=== PATIENT | female | born 1960 | race Caucasian/White ===

== ENCOUNTER → 2016-09-05 10:58 | Outpatient (CLI) | payer MEDICAID ==
[2016-06-13 15:29] VITALS: BMI 19.5
[~2016-09-05 10:58] MED LIST: ATIVAN0.5 MG PO; ELIQUIS2.5 MG PO; HYDROCODONE-APA1 TAB PO; OXYCODONE HCL E20 MG PO
== END | disposition home or self-care (01) ==
LOC: D.NM 08-16 10:15
DX: G90.521 Complex regional pain syndrome I of right lower limb (principal); Z96.651 Presence of right artificial knee joint

== ENCOUNTER 2016-10-11 11:20 | Day surgery (SDC) | payer MEDICAID ==
[~2016-10-11] VITALS: Ht 152.4 cm; Wt 45.5 kg
[~2016-10-11 11:20] MED LIST changes: -OXYCODONE HCL E20 MG PO
[2016-10-11] MEDS ORDERED: OXYCODONE HCL E20 MG PO (12:12)
[2016-10-11 12:27] VITALS: BP 131/84; Ht 152.4 cm; Wt 45.5 kg
--- NOTE | 2016-10-11 13:26 | NUR ---
1305 PROC COMPLETED WITHOUT PROBLEMS, WATER AND JUICE SERVED.
--- NOTE | 2016-10-11 13:31 | NUR ---
1308 BP 118/64 103 20 99% SAT 1315 105/64 97 20 99% SAT RETAINS LIQUIDS, VOIDS, STATES KNEES STILL HURTS BUT MUCH LESS RATES PAIN 4, GETTING DRESSED 1330 DC INSTS GIVEN, RELEASED IN WC .
--- NOTE | 2016-10-12 11:01 | PRO ---
PATIENT:ELEN HASKINS MEDICAL RECORD: [id number] : 60 LOCATION:PATRICIO ADMISSION DATE: 10/11/16 PROCEDURE PERFORMED BY: GLORIA BAEZ MD DATE OF PROCEDURE: 10/11/2016 Ms. Haskins is a 55-year-old patient, white female, who is referred by Dr. Josh Lazcano for the potential diagnosis of RSD or reflex sympathetic dystrophy. Ms. Haskins presented for evaluation and possible injection today for her bilateral lower extremity RSD. The patient has a complicated history and a complicated course. Apparently, the patient had [address] of her lower back in 2012, which did demonstrate some pathology at L4-L5 and L5-S1. The patient also related that she had a history of L4-L5 lumbar burgos by Dr. Webb in 1999. The patient was seen recently by Dr. Josh Lazcano for a right total knee. The patient relates that after her knee replacement that she has had significant pain of her lower extremities, right and left. The patient also has swelling of her feet bilaterally, which resolves within 1-2 weeks. The patient relates though that she has significant pain with that swelling and it come and go anytime. Does not seem to have any triggers such as trauma or any external issues that would cause the swelling. The patient has had a total body bone scan, which revealed some issues in her great toes bilaterally, but nothing else of significance. That was in 2012. She recently had a nuclear medicine bone scan of her knee, which demonstrated no scintigraphic evidence of infection or loosening of the right knee arthroplasty with the patient's complaint of the right knee pain. Dr. Lazcano has a presumptive diagnosis of RSD and has sent the patient to our service for evaluation and possible injections. After discussing with the patient extensively about her recent problems, which she relates that she acknowledges to have pain and swelling of her lower extremities, but can also have pain of her upper extremities, especially in her upper extremity joints. The patient relates that she does have a history of being diagnosed with rheumatoid arthritis and the patient has been trialed on multiple medications unsuccessfully, are causing side effects which include gabapentin, meloxicam, and Lyrica. The patient relates that those either to do not work or can cause swelling or issues in the past. Discussed with the patient if she had ever been diagnosed with fibromyalgia and she said no, may want to consider that diagnosis in the future. Physical examination did reveal a small statured woman with some slight swelling of her extremities especially her feet bilaterally. The patient does relate that they are tender to touch and that they seemed somewhat erythematous. The patient relates that she has had significant pain over her right knee. Upon examination in touching over the skin of her right knee, the patient related that it was severely tender to touch. On evaluation of her upper extremities versus lower extremities, hand's temperature was about 33-35 degrees centigrade, feet were approximately 1-2 degrees higher than that. The patient does relate that her feet become warm along with her tenderness and swelling. I feel that the patient might perhaps have some component of RSD or causalgia. I did not feel it was a classic presentation patient has no history of trauma other than the knee replacement and that she was having these issues prior to that knee replacement. The knee replacement had just seemed to exacerbate the issue. I felt that the patient may have as described earlier component of RSD, discussed lumbar epidural steroid injection with local anesthetic to see if we could start to alleviate patient's discomfort in her lower extremities. Risks and benefits were explained to the patient including risk of bleeding, infection and damage to underlying structures. It should be noted that the patient was on Eliquis, PROCEDURE NOTE [id number] ELEN HASKINS but has been off for significant period of time. The patient was on Eliquis following her knee surgery for DVT prophylaxis. Again, the patient is currently on no anticoagulation therapy at this time. After risks and benefits were explained, the patient consents. All questions were asked. was present. The patient was placed in sitting position, Betadine prep and drape. Under sterile conditions, local skin wheal was raised at L4-5 and a 17-gauge Tuohy needle was introduced in the epidural space via loss of resistance technique between L4-5. After loss of resistance technique, approximately 8 mL of solution, which was 160 mg of Depo-Medrol with 0.125% bupivacaine, was instilled into the epidural space. I did not notice any significant change in the patient's temperature between arms and legs after injection. The patient still relates that she has some discomfort in her lower extremities, but maybe there might be some improvement. I related to the patient that she would need at least a series of 3 injections to see if we could have some improvement on her lower extremity discomfort. TRANSINT:[id number] Voice Confirmation ID: [id number] DOCUMENT ID: [id number] CC: Neeta Flynn APRN, [facility] GLORIA BAEZ MD at 1101 CC: QUOC LAZCANO MD [id number] DICTATION DATE: 10/11/16 1316 BUSINESS STRATEGIST: 10/12/16 0709 [facility] [place] 10/11/16 [id number] [place] [address]
== END 2016-10-11 13:35 | disposition home or self-care (01) ==
LOC: D.OPS 11:20
DX: M79.662 Pain in left lower leg (principal); M79.661 Pain in right lower leg; M79.89 Other specified soft tissue disorders; M06.9 Rheumatoid arthritis, unspecified; Z96.651 Presence of right artificial knee joint

== ENCOUNTER 2016-10-18 11:57 | Day surgery (SDC) | payer MEDICAID ==
[~2016-10-18 11:57] MED LIST changes: +OXYCODONE HCL E20 MG PO
[2016-10-18 16:45] VITALS: Ht 152.4 cm
== END 2016-10-18 13:47 | disposition home or self-care (01) ==
LOC: D.OPS 11:57
DX: M53.3 Sacrococcygeal disorders, not elsewhere classified (principal); M06.9 Rheumatoid arthritis, unspecified; F17.200 Nicotine dependence, unspecified, uncomplicated; Z79.891 Long term (current) use of opiate analgesic; Z79.899 Other long term (current) drug therapy

== ENCOUNTER → 2017-02-10 12:44 | Outpatient (CLI) | payer SELFPAY | END | disposition home or self-care (01) | LOC: D.MRI 02-03 15:00 | DX: M79.671 Pain in right foot (principal); M79.672 Pain in left foot; M25.571 Pain in right ankle and joints of right foot; M25.572 Pain in left ankle and joints of left foot ==

== ENCOUNTER 2017-02-15 12:16 | Inpatient (IN) | payer SELFPAY ==
[~2017-02-15] VITALS: Ht 152.4 cm; Wt 45.5 kg
[2017-02-15 11:00] VITALS: BP 98/62
[~2017-02-15 12:16] MED LIST changes: +OXY IR30 MG PO; -OXYCODONE HCL E20 MG PO
[2017-02-15 12:41] VITALS: BP 116/65
--- NOTE | 2017-02-15 13:00 | NUR ---
ADMIT ASSESSMENT PER FLOW SHEET.ORIENTATION TO ROOM.CALL LIGHT IN REACH.FALL PREVENTION INITIATED
[2017-02-15 13:14] VITALS: BP 116/65; Ht 152.4 cm; Wt 45.5 kg
[2017-02-15 13:14] LABS: BASOPHILS 0.1 % (0-2); EOSINOPHILS 0.9 % (0-7); HEMATOCRIT 31.4 % (36.0-48.0); HEMOGLOBIN 10.3 g/dL (12-16); IMMATURE GRANULOCYTES 0.2 % (0-5); LYMPHOCYTES 23.1 % (15-50); MCH 27.7 pg (26.0-34.0); MCHC 32.8 g/dL (31.0-37.0); MCV 84.4 fL (80.0-100.0); MEAN PLATELET VOLUME 8.4 fL (7.4-10.4); MONOCYTES 5.6 % (2-11); NEUTROPHILS 70.1 % (40-80); RBC 3.72 10x6/uL (4.00-5.40); RDW 16.1 % (11.5-14.5); WBC 10.5 10x3/uL (4.8-10.8)
[2017-02-15 13:16] LABS: PLATELET COUNT 422 10x3/uL (130-400)
[2017-02-15 14:27] LABS: C-REACTIVE PROTEIN 12.1 mg/dL (0.0-0.9); CALC OSMOLALITY 267 mosm/kg (275-300); CALCIUM 8.6 mg/dL (8.5-10.1); CARBON DIOXIDE 27.2 mmol/L (21.0-32.0); CHLORIDE - SERUM 99 mmol/L (98-107); CREATININE - SERUM 0.5 mg/dL (0.6-1.3); GLUCOSE 94 mg/dL (74-106); POTASSIUM - SERUM 4.1 mmol/L (3.5-5.1); SODIUM 135 mmol/L (136-145); UREA NITROGEN 6 mg/dL (7-18); URIC ACID 2.2 mg/dL (2.6-7.2); eGFR NON AFRICAN AMERICAN > 90 mL/min (90-120)
--- NOTE | 2017-02-15 14:30 | NUR ---
IV SITED TO RIGHT HAND USING ASEPTIC TECH X2 STICKS,22G.MEDS ORDERED FOR PILO
[2017-02-15 14:34] LABS: ERYTHROCYTE SEDIMENTATION RATE 105 mm/hr (0-30)
--- NOTE | 2017-02-15 17:43 | NUR ---
PT WISHES TO GO OUTSIDE AND SMOKE AFTER BEING INSTRUCTED SHE IS ON BED REST.SHE ALSO HAS BEEN INFORMED NICOTINE PATCH WILL NOT BE PLACED ON HER WHEN SHE RETURNS.SHE WILL HAVE TO WAIT A FEW HOURS.SHE IS ALSO INFORMED HAS WILL RETURN SOON TO PLACE EPIDURAL FOR PAIN AND SHE NEEDS TO BE IN ROOM.CONSENT NOT SIGNED AT PRESENT.
[2017-02-15 18:03] LABS: APTT 31.6 SECONDS (22.8-39.4); INR 1.11 (0.85-1.17); PROTIME 14.2 SECONDS (11.6-15.0)
--- NOTE | 2017-02-15 18:05 | NUR ---
PT LEFT UNIT MBULATORY AFTER BEING ADVISED IF SHE WOULD WAIT SOMEONE WOULD HELP HER WITH WHEELCHAIR.SHE DECLINES AND WALKS OFF.
--- NOTE | 2017-02-15 18:57 | NUR ---
PT BACK ON UNIT AFTER GOING OUTSIDE.CONSENTS SIGNED AND THEN MEDS GIVEN ORDERED.
[2017-02-15 20:00] VITALS: BP 100/64
[2017-02-15 23:00] VITALS: BP 98/62
[2017-02-16 04:39] VITALS: BP 95/54
[2017-02-16 06:54] LABS: BASOPHILS 0.1 % (0-2); EOSINOPHILS 1.6 % (0-7); HEMOGLOBIN 9.2 g/dL (12-16); IMMATURE GRANULOCYTES 0.5 % (0-5); LYMPHOCYTES 23.3 % (15-50); MCH 27.7 pg (26.0-34.0); MCHC 32.9 g/dL (31.0-37.0); MCV 84.3 fL (80.0-100.0); MEAN PLATELET VOLUME 8.4 fL (7.4-10.4); MONOCYTES 7.6 % (2-11); NEUTROPHILS 66.9 % (40-80); PLATELET COUNT 455 10x3/uL (130-400); RBC 3.32 10x6/uL (4.00-5.40); RDW 16.3 % (11.5-14.5); WBC 10.2 10x3/uL (4.8-10.8)
[2017-02-16 07:15] LABS: CALC OSMOLALITY 274 mosm/kg (275-300); CALCIUM 8.3 mg/dL (8.5-10.1); CARBON DIOXIDE 25.6 mmol/L (21.0-32.0); CHLORIDE - SERUM 104 mmol/L (98-107); CREATININE - SERUM 0.5 mg/dL (0.6-1.3); GLUCOSE 118 mg/dL (74-106); POTASSIUM - SERUM 3.8 mmol/L (3.5-5.1); SODIUM 138 mmol/L (136-145); UREA NITROGEN 6 mg/dL (7-18); eGFR NON AFRICAN AMERICAN > 90 mL/min (90-120)
--- NOTE | 2017-02-16 07:40 | NUR ---
PT AOX4 RESP EVEN AND NONLABORED PT DENIES NEEDS AT THIS TIME IV TO RIGHT HAND PATENT AND INTACT SRX2 BED AT LOWEST SETTING CALL LIGHT WITHIN REACH WILL CONTINUE TO MONITR
[2017-02-16 10:19] LABS: ANA REFLEX - DIRECT Negative (Negative)
--- NOTE | 2017-02-16 10:23 | NUR ---
CM CALLED ADMISSIONS TO COME AND SPEAK TO PATIENT ABOUT MEDICAID. HI IN ADMISSIONS STATED PATIENT HAD MEDICAID IN SEPTEMBER AND THEY WOULD BE UP TO SPEAK WITH PATIENT THIS MORNING.
[2017-02-16 16:35] LABS: ALBUMIN 1.9 g/dL (3.4-5.0); ALKALINE PHOSPHATASE 124 U/L (46-116); ALT (SGPT) 14 U/L (10-68); BILIRUBIN - TOTAL 0.22 mg/dL (0.2-1.3); CALC OSMOLALITY 272 mosm/kg (275-300); CALCIUM 8.4 mg/dL (8.5-10.1); CARBON DIOXIDE 23.8 mmol/L (21.0-32.0); CHLORIDE - SERUM 104 mmol/L (98-107); CREATININE - SERUM 0.5 mg/dL (0.6-1.3); GLUCOSE 101 mg/dL (74-106); POTASSIUM - SERUM 4.1 mmol/L (3.5-5.1); PROTEIN - SERUM 6.6 g/dL (6.4-8.2); SODIUM 138 mmol/L (136-145); UREA NITROGEN 5 mg/dL (7-18); eGFR NON AFRICAN AMERICAN > 90 mL/min (90-120)
[2017-02-16 20:00] VITALS: BP 189/52
[2017-02-17] VITALS: BP 96/61
--- NOTE | 2017-02-17 02:37 | NUR ---
PT WAS ASSESSED AT THE BEGINNING OF THE SHIFT. SHE IS ALERT AND ORIENTED, ABLE TO VERBALIZE NEEDS. SHE STARTED OUT WANTING TO GO OUT SIDE WALKING, BUT WE REQUESTED THAT SHE ONLY GO IN A WHEELCHAIR DUE TO THE RECENT EPIDURAL, SWELLING IN HER FEET AND DRUGS SHE HAS TAKEN. SHE AGREED TO THIS. THE IV SITE TO HER RIGHT HAND IS GOOD WITH NO PROBLEMS. IT WAS DISCONNECTED WHILE SHE WAS GONE AWAY FROM THE NURSES STATION. WHEN SHE RETURNED SHE TOOK A SHOWER AND WASHED OFF HER NICOTINE PATCH. AT MIDNIGHT SHE TOOK ANOTHER TRIP OUTSIDE AND THEN WHEN SHE RETURNED SHE GOT HER PAIN MEDS AND WAS SETTLED FOR THE NIGHT BUT DID NOT GET ANOTHER NICOTINE PATCH. SHE WAS TOLD IT WOULD BE GIVEN TO HER IN THE AM AT 0900. SHE IS GOING TO THE BATHROOM AD BRIDGET AND HAS NOT REPOSRTED ANY PROBLEMS OF THIS TIME. THE BED IS LOW, RAILS UP X'S 2 WITH THE CALL LIGHT AT HAND. ALL MEDS HAVE BEEN TAKEN.
[2017-02-17 04:00] VITALS: BP 84/49
[2017-02-17 05:46] LABS: BASOPHILS 0.1 % (0-2); EOSINOPHILS 0 % (0-7); HEMATOCRIT 30.3 % (36.0-48.0); HEMOGLOBIN 9.7 g/dL (12-16); IMMATURE GRANULOCYTES 0.1 % (0-5); LYMPHOCYTES 17.9 % (15-50); MCH 27.2 pg (26.0-34.0); MCV 84.9 fL (80.0-100.0); MEAN PLATELET VOLUME 9.1 fL (7.4-10.4); MONOCYTES 1.6 % (2-11); NEUTROPHILS 80.3 % (40-80); PLATELET COUNT 503 10x3/uL (130-400); RBC 3.57 10x6/uL (4.00-5.40); RDW 15.9 % (11.5-14.5); WBC 8.2 10x3/uL (4.8-10.8)
[2017-02-17 05:59] LABS: ALKALINE PHOSPHATASE 137 U/L (46-116); ALT (SGPT) 15 U/L (10-68); CALCIUM 8.7 mg/dL (8.5-10.1); CARBON DIOXIDE 25.6 mmol/L (21.0-32.0); CHLORIDE - SERUM 106 mmol/L (98-107); CREATININE - SERUM 0.6 mg/dL (0.6-1.3); PROTEIN - SERUM 6.6 g/dL (6.4-8.2); SODIUM 141 mmol/L (136-145); eGFR NON AFRICAN AMERICAN > 90 mL/min (90-120)
[2017-02-17 06:01] LABS: CALC OSMOLALITY 283 mosm/kg (275-300); GLUCOSE 168 mg/dL (74-106); POTASSIUM - SERUM 4.9 mmol/L (3.5-5.1); UREA NITROGEN 9 mg/dL (7-18)
--- NOTE | 2017-02-17 07:30 | NUR ---
PATIENT RECEIVED IN RIGHT LATERAL POSITION RESTING QUIETLY. RESPIRATIONS EVEN AND UNLABORED. SIDE RAILS UP X2. BED IN LOW POSITION. CALL LIGHT IN REACH. IV TO RIGHT HAND SALINE SACHA PER PATIENT REQUEST.
--- NOTE | 2017-02-17 08:30 | NUR ---
ALERT IN BED WATCHING TV. NO SIGNS OF DISTRESS NOTED. WANTS TO GO HOME. SCHEDULED MEDICATION ADMINISTERED WELL PRN OXYCODONE. DENIES NEEDS. SIDE RAILS UP X2. BED IN LOW POSITION. CALL LIGHT IN REACH.
[2017-02-17 08:56] VITALS: BP 98/64
--- NOTE | 2017-02-17 09:01 | NUR ---
Patient Name: ELEN MEEHAN Admission Status: Urgent Accout number: [id number] Admission Date: 02-15-2017 : 1960 Admission Diagnosis: Attending: LIGIA Current LOS: 2 Anticipated DC Date: 02-20-2017 Planned Disposition: Home Primary Insurance: UNINSURED DISCOUNT PLAN Discharge Planning Comments: CM MET WITH PATIENT REGARDING D/C NEEDS AND PLANS. PATIENT STATED SHE LIVES WITH HER ROOMMATE (SADE GUTIERREZ) AND HE WILL DRIVE HER HOME AT DISCHARGE. PATIENT STATED SHE HAS 1 STEP TO ENTER HOME AND NO STAIRS INSIDE. PATIENT IS INDEPENDENT WITH HER CARE AND HAS A WALKER AND SHOWER CHAIR AT HOME. PATIENTS PCP IS DR. ORDAZ ([facility]) AND USES [facility] ON [address]. PATIENT DOES NOT WANT HOME HEALTH AT DISCHARGE. PATIENT STATED SHE HAS MEDICAID THAT SHE HAS HER LETTER PENDING IN HER [facility] NOTIFIED BUSINESS OFFICE. CM WILL CONTINUE TO FOLLOW PATIENT WITH D/C NEEDS AND PLANS. PCP DR. ORLIN [facility] [address] [phone] SADE GUTIERREZ (ROOMMATE) [phone] Superintendent Meter Tests: Lauren Flynn Is the patient Alert and Oriented? Yes 0 * How many steps to enter\exit or inside your home? 1 0 * PCP DR. ORDAZ ([facility]) 0 * Pharmacy [facility] [address] 0 * Preadmission Environment Home with Family 0 * ADLs Independent 0 * Equipment Shower Chair Walker 0 * List name and contact numbers for known caregivers / representatives who currently or will assist patient after discharge: SADE GUTIERREZ - [phone] * Community resources currently utilized None 0 * Additional services required to return to the preadmission environment? Yes 0 * Can the patient safely return to the preadmission environment? Yes 0 * Has this patient been hospitalized within the prior 30 days at any hospital? No 0 Grand Total: 0
--- NOTE | 2017-02-17 10:00 | NUR ---
SITTING UP ON SIDE OF BED ALERT. NO SIGNS OF DISTRESS NOTED. REFUSES SCDS. BED IN LOW POSITION. CALL LIGHT IN REACH.
[2017-02-17 12:36] VITALS: BP 95/60
--- NOTE | 2017-02-17 13:17 | NUR ---
PATIENT UP AMBULATING IN HALLWAY WITHOUT ASSIST. NO SIGNS OF DISTRESS NOTED. WILL CONTINUE TO MONITOR.
[2017-02-17] MEDS ORDERED: INDOCIN25 MG PO (13:35)
[2017-02-17] MEDS ORDERED: PREDNISONE5 MG PO (13:39)
--- NOTE | 2017-02-17 14:26 | NUR ---
CM REASSESSMENT NOTE: PATIENT IS DISCHARGING HOME WITH NO NEEDS. PATIENT DENIED HOME HEALTH. SADE GUTIERREZ IS DRIVING PATIENT HOME.
--- NOTE | 2017-02-17 14:30 | NUR ---
ALERT IN BED. OXY IR ADMINISTERED PER PRN ORDER. IV TO RIGHT WRIST D/C WITH CATH TIP INTACT. SITE COVERED WITH GAUZE AND BANDAID. ANTICIPATING D/C HOME. CALL LIGHT IN REACH.
--- NOTE | 2017-02-17 15:56 | NUR ---
D/C TEACHING PROVIDED. DENIES QUESTIONS
--- NOTE | 2017-02-17 16:10 | NUR ---
PATIENT AMBULATED OFF UNIT WITHOUT ASSIST WITH BELONGINGS. REFUSES WHEELCHAIR AND ASSIST
== END 2017-02-17 16:14 | disposition home or self-care (01) | DRG 74 ==
LOC: D.MS 12:16 → D.SDCHOLD 12:16 → D.MS 12:19
PROVIDERS: Anesthesiology; Family Medicine; ADMIT Orthopaedic Surgery
DX: G90.50 Complex regional pain syndrome I, unspecified (principal); F17.203 Nicotine dependence unspecified, with withdrawal; J45.909 Unspecified asthma, uncomplicated; F41.9 Anxiety disorder, unspecified; M19.90 Unspecified osteoarthritis, unspecified site; F41.0 Panic disorder [episodic paroxysmal anxiety]

== ENCOUNTER 2018-01-19 13:51 | Inpatient (IN) | payer MEDICAID ==
[~2018-01-19] VITALS: Ht 152.4 cm; Wt 4.5 kg
[~2018-01-19 13:51] MED LIST changes: +INDOCIN25 MG PO; +PREDNISONE5 MG PO
[2018-01-20 13:15] VITALS: BP 107/56
[2018-01-20 13:26] VITALS: BP 107/56
[2018-01-20 13:46] VITALS: Ht 152.4 cm; Wt 4.5 kg
[2018-01-20 14:45] LABS: BASOPHILS 0.2 % (0-2); EOSINOPHILS 2.1 % (0-7); HEMATOCRIT 29.2 % (36.0-48.0); HEMOGLOBIN 9.4 g/dL (12-16); IMMATURE GRANULOCYTES 0.3 % (0-5); LYMPHOCYTES 24.2 % (15-50); MCH 24.7 pg (26.0-34.0); MCHC 32.2 g/dL (31.0-37.0); MCV 76.6 fL (80.0-100.0); MEAN PLATELET VOLUME 8.2 fL (7.4-10.4); MONOCYTES 5.5 % (2-11); NEUTROPHILS 67.7 % (40-80); PLATELET COUNT 366 10x3/uL (130-400); RBC 3.81 10x6/uL (4.00-5.40); RDW 17.5 % (11.5-14.5); WBC 12.1 10x3/uL (4.8-10.8)
[2018-01-20 15:13] LABS: ALBUMIN 2.2 g/dL (3.4-5.0); ALKALINE PHOSPHATASE 106 U/L (46-116); ALT (SGPT) 12 U/L (10-68); BILIRUBIN - DIRECT 0.07 mg/dL (0.00-0.30); BILIRUBIN - TOTAL 0.17 mg/dL (0.2-1.3); C-REACTIVE PROTEIN 13.2 mg/dL (0.0-0.9); CALC OSMOLALITY 271 mosm/kg (275-300); CALCIUM 8.5 mg/dL (8.5-10.1); CARBON DIOXIDE 29.7 mmol/L (21.0-32.0); CHLORIDE - SERUM 101 mmol/L (98-107); CREATININE - SERUM 0.5 mg/dL (0.6-1.3); GLUCOSE 137 mg/dL (74-106); POTASSIUM - SERUM 3.4 mmol/L (3.5-5.1); PRO BNP 89 pg/mL (0-125); PROTEIN - SERUM 7.3 g/dL (6.4-8.2); SODIUM 136 mmol/L (136-145); UREA NITROGEN 7 mg/dL (7-18); eGFR NON AFRICAN AMERICAN > 90 mL/min (90-120)
[2018-01-20 15:57] LABS: ERYTHROCYTE SEDIMENTATION RATE 93 mm/hr (0-30)
[2018-01-20 16:17] VITALS: BP 90/55
[2018-01-20 22:20] LABS: APPEARANCE CLEAR (CLEAR); COLOR DK YELLOW (YELLOW)
[2018-01-20 22:21] LABS: BILIRUBIN NEGATIVE (NEGATIVE); GLUCOSE NEGATIVE (NEGATIVE); KETONE NEGATIVE (NEGATIVE); NITRITE NEGATIVE (NEGATIVE); PROTEIN NEGATIVE (NEGATIVE); UROBILINOGEN NORMAL (NORMAL)
[2018-01-20 23:04] VITALS: BP 105/58
[2018-01-21 04:33] VITALS: BP 91/44
[2018-01-21 06:22] LABS: BASOPHILS 0.3 % (0-2); EOSINOPHILS 2.7 % (0-7); HEMATOCRIT 27.5 % (36.0-48.0); HEMOGLOBIN 8.7 g/dL (12-16); IMMATURE GRANULOCYTES 0.5 % (0-5); LYMPHOCYTES 22.7 % (15-50); MCHC 31.6 g/dL (31.0-37.0); MEAN PLATELET VOLUME 8.6 fL (7.4-10.4); MONOCYTES 6.5 % (2-11); NEUTROPHILS 67.3 % (40-80); PLATELET COUNT 377 10x3/uL (130-400); RBC 3.62 10x6/uL (4.00-5.40); RDW 17.5 % (11.5-14.5); WBC 10.7 10x3/uL (4.8-10.8)
[2018-01-21 06:36] LABS: CALC OSMOLALITY 267 mosm/kg (275-300); CALCIUM 8.1 mg/dL (8.5-10.1); CARBON DIOXIDE 26.6 mmol/L (21.0-32.0); CHLORIDE - SERUM 102 mmol/L (98-107); CREATININE - SERUM 0.4 mg/dL (0.6-1.3); GLUCOSE 111 mg/dL (74-106); POTASSIUM - SERUM 3.7 mmol/L (3.5-5.1); SODIUM 135 mmol/L (136-145); eGFR NON AFRICAN AMERICAN > 90 mL/min (90-120)
[2018-01-21 06:39] LABS: UREA NITROGEN 5 mg/dL (7-18)
[2018-01-21 08:42] VITALS: BP 94/45
[2018-01-21 12:45] VITALS: BP 106/49
[2018-01-21 16:35] VITALS: BP 97/58
[2018-01-21 17:47] LABS: % SATURATION 5 % (15-55); IRON 10 ug/dl (35-150); TOTAL IRON BIND CAPACITY 187 ug/dl (260-445); UNSAT IRON BIND CAPACITY 177 ug/dl (150-375)
[2018-01-21 18:01] LABS: URIC ACID 2.8 mg/dL (2.6-7.2)
[2018-01-21 20:00] VITALS: BP 135/77
[2018-01-22 04:00] VITALS: BP 110/53
[2018-01-22 07:30] LABS: BASOPHILS 0.1 % (0-2); EOSINOPHILS 0.8 % (0-7); HEMATOCRIT 26.5 % (36.0-48.0); HEMOGLOBIN 8.4 g/dL (12-16); IMMATURE GRANULOCYTES 0.4 % (0-5); MCH 24.1 pg (26.0-34.0); MCHC 31.7 g/dL (31.0-37.0); MCV 76.1 fL (80.0-100.0); MEAN PLATELET VOLUME 8.2 fL (7.4-10.4); MONOCYTES 7.9 % (2-11); NEUTROPHILS 60.8 % (40-80); PLATELET COUNT 355 10x3/uL (130-400); RBC 3.48 10x6/uL (4.00-5.40); RDW 17.7 % (11.5-14.5); WBC 9.7 10x3/uL (4.8-10.8)
[2018-01-22 07:42] LABS: CALC OSMOLALITY 276 mosm/kg (275-300); CALCIUM 8.5 mg/dL (8.5-10.1); CARBON DIOXIDE 25.4 mmol/L (21.0-32.0); CHLORIDE - SERUM 106 mmol/L (98-107); CREATININE - SERUM 0.5 mg/dL (0.6-1.3); GLUCOSE 117 mg/dL (74-106); POTASSIUM - SERUM 3.8 mmol/L (3.5-5.1); SODIUM 139 mmol/L (136-145); UREA NITROGEN 6 mg/dL (7-18); eGFR NON AFRICAN AMERICAN > 90 mL/min (90-120)
[2018-01-22 08:00] VITALS: BP 94/58
[2018-01-22 17:05] VITALS: BP 115/58
[2018-01-22 18:49] LABS: ERYTHROCYTE SEDIMENTATION RATE 105 mm/hr (0-30)
[2018-01-22 20:48] LABS: % SATURATION 7 % (15-55); IRON 14 ug/dl (35-150); TOTAL IRON BIND CAPACITY 183 ug/dl (260-445); UNSAT IRON BIND CAPACITY 169 ug/dl (150-375)
[2018-01-22 22:58] VITALS: BP 109/66
[2018-01-23 05:13] LABS: BASOPHILS 0.1 % (0-2); EOSINOPHILS 0.7 % (0-7); HEMATOCRIT 29.1 % (36.0-48.0); HEMOGLOBIN 9.2 g/dL (12-16); IMMATURE GRANULOCYTES 0.4 % (0-5); MCH 24.5 pg (26.0-34.0); MCHC 31.6 g/dL (31.0-37.0); MCV 77.6 fL (80.0-100.0); MEAN PLATELET VOLUME 8.6 fL (7.4-10.4); MONOCYTES 6.6 % (2-11); NEUTROPHILS 60.2 % (40-80); RBC 3.75 10x6/uL (4.00-5.40)
[2018-01-23 05:19] LABS: PLATELET COUNT 463 10x3/uL (130-400); WBC 13.5 10x3/uL (4.8-10.8)
[2018-01-23 05:35] LABS: CALC OSMOLALITY 281 mosm/kg (275-300); CALCIUM 9.1 mg/dL (8.5-10.1); CARBON DIOXIDE 26.8 mmol/L (21.0-32.0); CHLORIDE - SERUM 107 mmol/L (98-107); CREATININE - SERUM 0.5 mg/dL (0.6-1.3); GLUCOSE 93 mg/dL (74-106); SODIUM 142 mmol/L (136-145); eGFR NON AFRICAN AMERICAN > 90 mL/min (90-120)
[2018-01-23 05:40] VITALS: BP 124/64
[2018-01-23 05:41] LABS: UREA NITROGEN 9 mg/dL (7-18)
[2018-01-23 09:20] VITALS: BP 104/55
[2018-01-24 11:21] LABS: HEPATITIS C ANTIBODY 0.3 (0.0-0.9)
[2018-01-24 14:23] LABS: ANA REFLEX - ANTICHROMATIN ABS <0.2 AI (0.0-0.9); ANA REFLEX - CENTROMERE B ABS <0.2 AI (0.0-0.9); ANA REFLEX - DBL STRANDED DNA <1 IU/mL (0-9); ANA REFLEX - DIRECT Positive (Negative); ANA REFLEX - JO-1 AB <0.2 AI (0.0-0.9); ANA REFLEX - SCL-70 <0.2 AI (0.0-0.9); ANA REFLEX - SJOGRENS AB SSA <0.2 AI (0.0-0.9); ANA REFLEX - SJOGRENS AB SSB <0.2 AI (0.0-0.9); ANA REFLEX - SMITH AB <0.2 AI (0.0-0.9)
[2018-01-24 14:23] LABS: ANA REFLEX - ANTICHROMATIN ABS <0.2 AI (0.0-0.9); ANA REFLEX - CENTROMERE B ABS <0.2 AI (0.0-0.9); ANA REFLEX - DBL STRANDED DNA <1 IU/mL (0-9); ANA REFLEX - DIRECT Positive (Negative); ANA REFLEX - JO-1 AB <0.2 AI (0.0-0.9); ANA REFLEX - RNP ANTIBODIES 1.1 AI (0.0-0.9); ANA REFLEX - SCL-70 <0.2 AI (0.0-0.9); ANA REFLEX - SJOGRENS AB SSA <0.2 AI (0.0-0.9); ANA REFLEX - SJOGRENS AB SSB <0.2 AI (0.0-0.9); ANA REFLEX - SMITH AB <0.2 AI (0.0-0.9)
== END 2018-01-23 15:16 | disposition home or self-care (01) | DRG 546 ==
LOC: D.MS 13:51 → UNDOADMIN 13:51 → D.MS 01-20 12:20
PROVIDERS: Family Medicine; Internal Medicine Nephrology; Orthopaedic Surgery
DX: M06.9 Rheumatoid arthritis, unspecified (principal); G90.523 Complex regional pain syndrome I of lower limb, bilateral; F17.203 Nicotine dependence unspecified, with withdrawal; D50.9 Iron deficiency anemia, unspecified; M19.90 Unspecified osteoarthritis, unspecified site; F41.0 Panic disorder [episodic paroxysmal anxiety]; F41.9 Anxiety disorder, unspecified; K75.9 Inflammatory liver disease, unspecified

== ENCOUNTER → 2018-03-14 11:07 | Outpatient (CLI) | payer MEDICAID ==
[~2018-03-14 11:07] MED LIST changes: +PREDNISONE10 MG PO
== END | disposition home or self-care (01) ==
LOC: D.NM 10:15
DX: M25.561 Pain in right knee (principal)

== ENCOUNTER → 2018-06-06 13:11 | Outpatient (CLI) | payer MEDICAID | END | disposition home or self-care (01) | LOC: D.MRI 05-16 14:30 | DX: M25.572 Pain in left ankle and joints of left foot (principal) ==

== ENCOUNTER 2018-07-12 09:43 | Day surgery (SDC) | payer MEDICAID ==
[~2018-07-12] VITALS: Ht 152.4 cm; Wt 45.5 kg
[2018-07-12] VITALS (7 sets, daily range): BP systolic 65–106; BP diastolic 59–67; Ht 152.4 cm; Wt 45.5 kg
--- NOTE | ~2018-07-12 | OP ---
PATIENT NAME: ELEN MEEHAN MEDICAL RECORD: [id number] :60 LOCATION:D.OPS ADMISSION DATE: SURGEON: QUOC LAZCANO MD DATE OF OPERATION: 07/12/2018 PREOPERATIVE DIAGNOSES: 1. Posterior tibial tendinitis. 2. Large cyst on the dorsal lateral aspect of the foot. POSTOPERATIVE DIAGNOSES: 1. Posterior tibial tendinitis. 2. Large cyst on the dorsal lateral aspect of the foot. PROCEDURES: 1. Debridement of the posterior tibial tendon. 2. Excision of a large cyst. SURGEON: Quoc Lazcano MD ANESTHESIA: General. INTRAOPERATIVE COMPLICATIONS: None. SUMMARY OF PATHOLOGIC FINDINGS: The cystic mass had no capsule around it. It was white and almost cheese-like in its consistency; however, it stayed together on removal. This was sent to pathology. The posterior tibial tendon was found to have substantial tendinitis and synovitis. This was debrided. No specific tears were seen in the posterior tibial tendon. OPERATIVE SUMMARY IN DETAIL: After obtaining the appropriate preoperative orthopedic surgery consent as well as anesthetic consultation, evaluation and clearance, the patient was brought to the operating room and placed on the operating table in supine position. After adequate general laryngeal mask was administered, tourniquet was placed on the proximal aspect of the left lower extremity. Left lower extremity was then prepped and draped in routine sterile fashion. The patient was placed in a left lateral decubitus position for a direct approach to the medial aspect of the foot. The patient was held firmly to the operating table using the vacuum pack suction system. All pressure points were well padded. Curvilinear incision was made from the posterior aspect of the malleolus, down to the area of the cyst, which was directly over the distal aspect of the posterior tibial tendon. The posterior tibial tendon sheath was opened up and substantial amounts of synovitis was noted along with what appeared to be a very stenotic tendon sheath. Copious irrigation and debridement of the posterior tibial tendinitis and peritendinous synovium was done sharply. This was then carried out. This was then followed by complete removal of the cyst, which is as described above. At this point, it was copiously irrigated and closed with 2-0 Vicryl followed by 4-0 Prolene. Sterile dressings were applied. Tourniquet was deflated. The patient was awakened and taken to recovery room in stable condition. All final needle and sponge counts were correct. TRANSINT:[id number] Voice Confirmation ID: [id number] DOCUMENT ID: [id number] OPERATIVE REPORT [id number] ELEN MEEHAN MD, QUOC BLACK at 1312 CC: [id number] DICTATION DATE: 07/13/18 1353 DROP BOARD MAN: 07/13/18 1501 [facility] 07/13/18 [id number] [place] [address]
[2018-07-12 10:07] LABS: HEMATOCRIT 35.7 % (36.0-48.0); HEMOGLOBIN 11.4 g/dL (12-16); MCH 25.4 pg (26.0-34.0); MCHC 31.9 g/dL (31.0-37.0); MCV 79.7 fL (80.0-100.0); MEAN PLATELET VOLUME 8.4 fL (7.4-10.4); RBC 4.48 10x6/uL (4.00-5.40)
[2018-07-13 06:38] VITALS: BP 105/63
[2018-07-13 08:23] VITALS: BP 117/75
[2018-07-13] MEDS ORDERED: OXY IR30 MG PO (08:46)
[2018-07-13] MEDS ORDERED: PREDNISONE5 MG PO (08:46)
[2018-07-13] MEDS ORDERED: KEFLEX500 MG PO (08:47)
== END 2018-07-13 15:00 | disposition home or self-care (01) ==
LOC: D.OPS 09:43 → D.MS 17:27 → D.SDCHOLD 07-13 07:56 → D.MS 07-13 07:57 → D.OPS 07-13 15:00
PROVIDERS: Anesthesiology
DX: M76.822 Posterior tibial tendinitis, left leg (principal); M65.862 Other synovitis and tenosynovitis, left lower leg; L72.0 Epidermal cyst; Z01.812 Encounter for preprocedural laboratory examination

== ENCOUNTER 2018-11-02 10:29 | Emergency (ER) | payer MEDICAID ==
[~2018-11-02] VITALS: Ht 152.4 cm; Wt 46.4 kg
[~2018-11-02 10:29] MED LIST changes: +KEFLEX500 MG PO
[2018-11-02 10:32] VITALS: BP 95/61; Ht 152.4 cm; Wt 46.4 kg
[2018-11-02] MEDS ORDERED: FUROSEMIDE20 MG PO (10:34)
[2018-11-02 11:21] LABS: BASOPHILS 0.3 % (0-2); EOSINOPHILS 1.4 % (0-7); HEMATOCRIT 30.4 % (36.0-48.0); HEMOGLOBIN 9.3 g/dL (12-16); IMMATURE GRANULOCYTES 0.3 % (0-5); LYMPHOCYTES 18.8 % (15-50); MCH 23.2 pg (26.0-34.0); MCHC 30.6 g/dL (31.0-37.0); MCV 75.8 fL (80.0-100.0); MEAN PLATELET VOLUME 8.6 fL (7.4-10.4); MONOCYTES 7.2 % (2-11); RBC 4.01 10x6/uL (4.00-5.40); RDW 17.6 % (11.5-14.5); WBC 10.2 10x3/uL (4.8-10.8)
[2018-11-02 11:25] LABS: PLATELET COUNT 372 10x3/uL (130-400)
[2018-11-02 11:35] LABS: ALBUMIN 2.4 g/dL (3.4-5.0); ALKALINE PHOSPHATASE 94 U/L (46-116); ALT (SGPT) 6 U/L (10-68); CALC OSMOLALITY 277 mosm/kg (275-300); CALCIUM 8.5 mg/dL (8.5-10.1); CARBON DIOXIDE 26.1 mmol/L (21.0-32.0); CHLORIDE - SERUM 103 mmol/L (98-107); CREATININE - SERUM 0.5 mg/dL (0.6-1.3); GLUCOSE 119 mg/dL (74-106); POTASSIUM - SERUM 3.8 mmol/L (3.5-5.1); PROTEIN - SERUM 7.9 g/dL (6.4-8.2); SODIUM 139 mmol/L (136-145); UREA NITROGEN 9 mg/dL (7-18); eGFR NON AFRICAN AMERICAN > 90 mL/min (90-120)
[2018-11-02 11:39] LABS: BILIRUBIN - TOTAL 0.09 mg/dL (0.2-1.3)
[2018-11-02 11:42] LABS: PRO BNP 81 pg/mL (0-125)
[2018-11-02 12:46] LABS: APPEARANCE CLEAR (CLEAR); BILIRUBIN NEGATIVE (NEGATIVE); COLOR YELLOW (YELLOW); EPITHELIAL CELLS 0-5 /hpf (0-5); GLUCOSE NEGATIVE (NEGATIVE); KETONE NEGATIVE (NEGATIVE); NITRITE NEGATIVE (NEGATIVE); PROTEIN NEGATIVE (NEGATIVE); SPECIFIC GRAVITY 1.015 (1.005-1.020); UROBILINOGEN NORMAL (NORMAL); WHITE CELLS - URINE 0-5 /hpf (0-5)
[2018-11-02 12:47] LABS: BACTERIA MODERATE /hpf (NONE SEEN); MUCUS >1+ /lpf (NONE SEEN)
[2018-11-02] MEDS ORDERED: LEVAQUIN750 MG PO (17:37)
== END 2018-11-02 18:02 | disposition left against medical advice (07) ==
LOC: D.ER 10:29
PROVIDERS: Family Medicine
DX: J18.9 Pneumonia, unspecified organism (principal); R63.4 Abnormal weight loss; R60.0 Localized edema; R74.8 Abnormal levels of other serum enzymes; R59.1 Generalized enlarged lymph nodes

== ENCOUNTER → 2018-12-05 14:34 | Outpatient (CLI) | payer MEDICAID ==
[2018-11-02 10:32] VITALS: BMI 19.9
[~2018-12-05 14:34] MED LIST changes: +AMBIEN5 MG PO; +BUTRANS1 EAC2 TRANSDERM; +FUROSEMIDE20 MG PO; +LEVAQUIN750 MG PO; +Nicoderm [PBKC] TRANSDERM; +VALIUM10 MG PO
== END | disposition home or self-care (01) ==
LOC: D.US 14:00
PROVIDERS: ATTEND Emergency Medicine
DX: R59.9 Enlarged lymph nodes, unspecified (principal)

== ENCOUNTER 2019-02-05 17:04 | Inpatient (IN) | payer MEDICAID ==
[~2019-02-05 17:04] MED LIST changes: -AMBIEN5 MG PO; -BUTRANS1 EAC2 TRANSDERM; -Nicoderm [PBKC] TRANSDERM; -VALIUM10 MG PO
[2019-02-05 22:28] VITALS: BP 84/50; BMI 17.0
[2019-02-05] MEDS ORDERED: BUTRANS1 EAC2 TRANSDERM (22:33)
[2019-02-05] MEDS ORDERED: VALIUM10 MG PO (22:34)
[2019-02-05] MEDS ORDERED: OXY IR30 MG PO (22:39)
[2019-02-05 22:43] LABS: BASOPHILS 0.4 % (0-2); EOSINOPHILS 3.3 % (0-7); HEMATOCRIT 34.9 % (36.0-48.0); HEMOGLOBIN 11.3 g/dL (12-16); IMMATURE GRANULOCYTES 0.3 % (0-5); LYMPHOCYTES 26.1 % (15-50); MCH 23.5 pg (26.0-34.0); MCHC 32.4 g/dL (31.0-37.0); MCV 72.7 fL (80.0-100.0); MEAN PLATELET VOLUME 9.1 fL (7.4-10.4); MONOCYTES 5.9 % (2-11); PLATELET COUNT 346 10x3/uL (130-400); RDW 17.6 % (11.5-14.5); WBC 7.6 10x3/uL (4.8-10.8)
[2019-02-05] MEDS ORDERED: AMBIEN5 MG PO (22:45)
[2019-02-05 23:27] LABS: ALBUMIN 2.5 g/dL (3.4-5.0); ALKALINE PHOSPHATASE 98 U/L (46-116); ALT (SGPT) 8 U/L (10-68); BILIRUBIN - TOTAL 0.25 mg/dL (0.2-1.3); C-REACTIVE PROTEIN 8.9 mg/dL (0.0-0.9); CALC OSMOLALITY 269 mosm/kg (275-300); CALCIUM 8.6 mg/dL (8.5-10.1); CARBON DIOXIDE 29.3 mmol/L (21.0-32.0); CHLORIDE - SERUM 98 mmol/L (98-107); CREATININE - SERUM 0.6 mg/dL (0.6-1.3); GLUCOSE 140 mg/dL (74-106); POTASSIUM - SERUM 3.4 mmol/L (3.5-5.1); PROTEIN - SERUM 8.1 g/dL (6.4-8.2); SODIUM 135 mmol/L (136-145); UREA NITROGEN 7 mg/dL (7-18); eGFR NON AFRICAN AMERICAN > 90 mL/min (90-120)
[2019-02-05 23:57] LABS: ERYTHROCYTE SEDIMENTATION RATE 59 mm/hr (0-30)
[2019-02-06] VITALS: BP 90/43
--- NOTE | 2019-02-06 04:40 | NUR ---
1999) REC'D TO ROOM 2223 VIA W/C.C/O PAIN LOWER BACK AND LEFT KNEE.LEFT KNEE RED LARGE AMT. SWELLING PRESENT AND 3-4+ EDEMA BOTH FEET.PEDAL PULSE PRESENT DENIES NUMBNESS.WIGGLES TOES .MAX. ASSIST OF TWO NURSES TO GET IN BED.DEBORAH SMYTH HERE. REQUESTING TO GO OUT TO SMOKE OFFERED NICOTINE PATCH REFUSED.2114)PATIENT NOT IN ROOM WHEN GOING TO START IV FOUND IN ER WAITING ROOM DRINKING CUP COFFEE.REINFORCED PREVIOUS INSTRUCTIONS THAT YOU HAD A FALL PRIOR TO BEING ADMIITED TO HOSPITAL.WHICH MAKES YOU A FALL RISK.AMARJIT CABRERA APN HERE REINFORCED ABOVE AND OFFERED NICOTINE PATCH AGAIN REFUSED STATES I;M GONNA GO OUTSIDE TOLD NURSE YOU'RE A LIAR DIDN'T SAY THAT I COULDN'T GO OUT TO SMOKE ATTEMPTED TO EXPLAIN YOU ARE A FALL RISK.BECAME ARGUMENTATIVE.0000) DTR. HERE.REQUESTING SHOWER EXPAINED MOBILITY IS OFF SPONGE BATH OFFERED REFUSED.199) DTR. UNPLUGGED IV MOTHER IN W/C AGAIN REINFORCED BEING A FALL RISK.WOULD BE HAPPY TO GET ORDER FOR PATCH AGAIN BUT ONCE PATCH ON NOT ALLOWED TO SMOKE WITH PATCH ON.REFUSED.WILL CONTINUE TO MONITOR FOR ANY CHGES. AND FOLLOW CURRENT PLAN OF CARE
[2019-02-06 06:55] LABS: BASOPHILS 0.4 % (0-2); EOSINOPHILS 3.8 % (0-7); HEMATOCRIT 29.6 % (36.0-48.0); HEMOGLOBIN 9.3 g/dL (12-16); IMMATURE GRANULOCYTES 0.1 % (0-5); MCHC 31.4 g/dL (31.0-37.0); MCV 73.1 fL (80.0-100.0); MEAN PLATELET VOLUME 9.2 fL (7.4-10.4); MONOCYTES 6.7 % (2-11); PLATELET COUNT 371 10x3/uL (130-400); RBC 4.05 10x6/uL (4.00-5.40); RDW 17.8 % (11.5-14.5); WBC 7.2 10x3/uL (4.8-10.8)
[2019-02-06 07:01] LABS: % SATURATION 8 % (15-55); IRON 12 ug/dl (35-150); TOTAL IRON BIND CAPACITY 146 ug/dl (260-445); UNSAT IRON BIND CAPACITY 134 ug/dl (150-375)
[2019-02-06 07:26] LABS: CALC OSMOLALITY 269 mosm/kg (275-300); CALCIUM 8.3 mg/dL (8.5-10.1); CARBON DIOXIDE 28.5 mmol/L (21.0-32.0); CHLORIDE - SERUM 99 mmol/L (98-107); CREATININE - SERUM 0.5 mg/dL (0.6-1.3); FERRITIN 151 ng/mL (3-244); GLUCOSE 105 mg/dL (74-106); MAGNESIUM - SERUM 2.2 mg/dL (1.8-2.4); PHOSPHOROUS 3.4 mg/dL (2.5-4.9); POTASSIUM - SERUM 3.1 mmol/L (3.5-5.1); SODIUM 136 mmol/L (136-145); UREA NITROGEN 8 mg/dL (7-18); eGFR NON AFRICAN AMERICAN > 90 mL/min (90-120)
[2019-02-06 07:28] LABS: CHOL - HDL RATIO 6.6 ratio (2.3-4.1); LDL-HDL RATIO 4.7 ratio (1.5-3.5); THYROID STIMULATING HORMONE 5.2 uIU/mL (0.36-3.74)
[2019-02-06 07:33] LABS: INR 1.22 (0.85-1.17); PROTIME 14.8 SECONDS (11.6-15.0)
[2019-02-06 08:52] LABS: D-DIMER-QUANTITATIVE > 20.00 ug/mLFEU (0.20-0.54)
[2019-02-06 09:44] VITALS: BP 103/60
[2019-02-06 12:00] VITALS: BP 103/49
[2019-02-06 13:54] VITALS: BMI 16.9
--- NOTE | 2019-02-06 14:02 | NUR ---
PT SAURAV FUNK BED WITH DAUGHTER AT [facility], PT STATED SGHE NEEDED ANOTHER PAIN PILL, ADVISED PT IT IS ORDERED EVRY 8 HOURS NEEDED AND I CAN NOT ADMINISTER FOR ANOTHER 3 HOURS. DAUGHTER INQUIRED IF PT COULD POSSIBLY HAVE A PSYCH CONSULT AND WORRIED ABOUT PT SUDDEN ONSET OF CONSIDERABLE WEIGHT LOSS. NO OTHER NEEDS AT THIS TIME CONTINUE WITH PLAN OF CARE
[2019-02-06 16:22] VITALS: BMI 17.0
--- NOTE | 2019-02-06 16:41 | MORECARE ---
CASE MANAGEMENT DISCHARGE SUMMARY PATIENT: ELEN MEEHAN UNIT: [id number] ADM DATE: 02/05/19 AGE: 58 : 60 SEX: F ROOM/BED: D.2224 AUTHOR: ANGIE NUGENT PHYSICIAN: REFERRING PHYSICIAN: QUETA YOU DO DATE OF SERVICE: 02/06/19 Discharge Plan Patient Name: ELEN MEEHAN [facility] [facility] 1960 Planned Disposition: Home Anticipated Discharge Date: 02/06/19 Discharge Date: Expected LOS: 1 Initial Reviewer: [email or web address] Initial Review Date: 02/06/2019 Generated: 02/06/19 5:40 pm Patient Name: ELEN MEEHAN Page 17528 at 1641 All edits/amendments must be made on the electronic document DICTATION DATE: 02/06/19 1640 LINOLEUM FLOOR LAYER: DESHAWN 02/06/19 1640 RPT#: [id number] DC DATE: STATUS: ADM IN [facility] [address] [place] [address] END OF REPORT
--- NOTE | 2019-02-06 16:48 | MORECARE ---
CASE MANAGEMENT DISCHARGE SUMMARY PATIENT: ELEN MEEHAN UNIT: [id number] ADM DATE: 02/05/19 AGE: 58 : 60 SEX: F ROOM/BED: D.2224 AUTHOR: ANGIE NUGENT PHYSICIAN: REFERRING PHYSICIAN: QUETA YOU DO DATE OF SERVICE: 02/06/19 Discharge Plan Patient Name: ELEN MEEHAN Facility: [facility]:[place] : 1960 Planned Disposition: Home Anticipated Discharge Date: 02/06/19 Discharge Date: Expected LOS: 1 Initial Reviewer: [email or web address] Initial Review Date: 02/06/2019 Generated: 02/06/19 5:48 pm Comments DCP- Discharge Planning Updated by [email or web address]: Kae Saucedo on 02/06/19 3:[address] Patient Name: ELEN MEEHAN Admission Status: Urgent Accout number: [id number] Admission Date: 02-05-2019 : 1960 Admission Diagnosis: Attending: QUETA YOU Current LOS: 1 Anticipated DC Date: 02-06-2019 Planned Disposition: Home Primary Insurance: MEDICAID [place] Discharge Planning Comments: CM met with patient to discuss discharge planning/needs, her daughter (Ania) is present in the room and verbal permission received to discuss discharge planning with daughter present. Patient falls asleep a couple of times during questioning. She states she lives alone, but her family checks on her often. States her friend (Cesilia) lives 3 minutes away and also helps her. She states she has been independent with all ADL's and AIDL's. Her daughter states lately they have helped her with her med management. I discussed the availability of home health and additional DME needs and she declines need at this time. CM will continue to follow and assist with discharge planning/needs. Home Health Care Coordinator: Kae Saucedo DCPIA - Discharge Planning Initial Assessment Updated by [email or web address]: Kae Saucedo on 02/06/19 4:44 pm * Is the patient Alert and Oriented? Yes * How many steps to enter\exit or inside your home? 10/26 * PCP Dr. Paris * Pharmacy [facility] * Preadmission Environment Home Alone * ADLs Independent * Equipment Bedside Commode Shower Chair Walker * List name and contact numbers for known caregivers / representatives who currently or will assist patient after discharge: Ania - DTR - [phone] Lucia Garcia - DTR - Cesilia [facility] - [phone] * Verbal permission to speak to the caregivers and representatives has been obtained from the patient. Yes * Community resources currently utilized None * Additional services required to return to the preadmission environment? No * Can the patient safely return to the preadmission environment? Yes * Has this patient been hospitalized within the prior 30 days at any hospital? No Last DP export: 02/06/19 3:40 p Patient Name: ELEN MEEHAN Page 54380 at 1648 All edits/amendments must be made on the electronic document DICTATION DATE: 02/06/191647 ASSISTANT FITNESS MANAGER: DESHAWN 02/06/191647 RPT#: [id number] DC DATE: STATUS: ADM IN [facility] [address] [place] [address] END OF REPORT
--- NOTE | 2019-02-06 17:02 | NUR ---
I have reviewed this patient and I concur with the Shift Assessment completed by the Licensed Practical Nurse today this shift.
[2019-02-06 18:35] VITALS: BP 90/58
[2019-02-07] VITALS: BP 91/54
--- NOTE | 2019-02-07 00:54 | NUR ---
REC'D AT CHGE OF SHIFT SITTING ON SIDE BED WITH FAMILY AT BEDSIDE FALL PRECAUTIONS IN PLACE.BED ARMED.BUT CONTINUES TO IGNORE. VERY UNCOOPERATIVE STATES I'LL GO AND GET FRESH AIR IF I WANT TO AND NOBODY BETTER NOT TRY TO STOP ME.2144)LEFT FLOOR WALKING ATTEMPTED TO TALK PT. INTO GOING BACK TO RM. REFUSED.2319)RETURNED TO ROOM.STATES I'VE NOT HAD MEDS GREGORY EXPLAINED YOU HAV TO BE IN ROOM TO GET MEDS.STATES YOU COULD HAVE BROUGHT THEM TO ME WILL CONTINUE TO MONITOR FOR ANY CHGES AND FOLLOW CURRENT PLAN OF CARE
--- NOTE | 2019-02-07 02:45 | NUR ---
REMAINS UNCOOPERATIVE ABOUT NOT LEAVING THE FLOOR.HOUSESUPERVISOR CALLED NOTIFIED THAT UNABLE TO KEEP PATIENT ON UNIT DUE TO FALL PRECAUTIONS AND IF SHE MAY HAVE ANY SUGGESTIONS.STATES WHY DO YOU CALL WHEEL TRUER?MAYBE ONE OF YOU CAN GO OUT WITH HER.WILL CONTINUE TO MONITOR FOR ANY NEW CHGES. AND FOLLOW CURRENT PLAN OF CARE.LEAVING FLOOR AGAIN WITH CIGARETTS IN HAND EVEN THOUGH ENCOURAGING NOT TO.
--- NOTE | 2019-02-07 04:14 | NUR ---
RESTING QUITELY IN BED NO APPARENT DISTRESS, CALL CARMEN HAWLEY
[2019-02-07 04:20] LABS: BASOPHILS 0.2 % (0-2); EOSINOPHILS 2.6 % (0-7); HEMATOCRIT 30.9 % (36.0-48.0); HEMOGLOBIN 9.8 g/dL (12-16); IMMATURE GRANULOCYTES 0.1 % (0-5); LYMPHOCYTES 25.6 % (15-50); MCH 23.3 pg (26.0-34.0); MCHC 31.7 g/dL (31.0-37.0); MCV 73.4 fL (80.0-100.0); MEAN PLATELET VOLUME 9.2 fL (7.4-10.4); MONOCYTES 7.1 % (2-11); NEUTROPHILS 64.4 % (40-80); PLATELET COUNT 388 10x3/uL (130-400); RBC 4.21 10x6/uL (4.00-5.40); RDW 17.7 % (11.5-14.5); WBC 8.1 10x3/uL (4.8-10.8)
[2019-02-07 04:50] LABS: % SATURATION 8 % (15-55); IRON 14 ug/dl (35-150); TOTAL IRON BIND CAPACITY 156 ug/dl (260-445); UNSAT IRON BIND CAPACITY 142 ug/dl (150-375)
[2019-02-07 05:01] LABS: CALC OSMOLALITY 271 mosm/kg (275-300); CALCIUM 8.2 mg/dL (8.5-10.1); CARBON DIOXIDE 28.5 mmol/L (21.0-32.0); CHLORIDE - SERUM 99 mmol/L (98-107); CREATININE - SERUM 0.5 mg/dL (0.6-1.3); FERRITIN 140 ng/mL (3-244); GLUCOSE 108 mg/dL (74-106); LDH 152 U/L (81-234); PHOSPHOROUS 3.5 mg/dL (2.5-4.9); POTASSIUM - SERUM 3.3 mmol/L (3.5-5.1); SODIUM 136 mmol/L (136-145); UREA NITROGEN 10 mg/dL (7-18); eGFR NON AFRICAN AMERICAN > 90 mL/min (90-120)
[2019-02-07 07:18] LABS: ANA REFLEX - DIRECT Negative (Negative)
--- NOTE | 2019-02-07 07:45 | NUR ---
PT IS SITTING IN BED WITH EYES OPEN. PT SEEMS TO BE IN AN AGGITATED STATE. PT STATES, "IM SCARED. I DONT KNOW WHAT IS GOING ON". PT REORIENTED TO SITUATION, TIME, PLACE. PT WITH TEARS. PT IS AGGITATED WITH ISRAEL ALARM. PT ASSISTED BACK TO BED IN A POSITION TO TURN OFF ISRAEL ALARM. PT STATES, "I NEED TO GO SMOKE. IF I DONT GO SMOKE IN ABOUT 3 MINUTES I AM GOING TO LOSE IT". PT EDUCATED ON LEAVING THE FLOOR AND STRONGLY ADVISED TO STAY IN ROOM. PT VERBALIZE UNDERSTANDING AND STATES, "OK. I NEED TO TALK WITH STANLEY OR DR LAZCANO". WILL ADDRESS PT AGGITATION. SEE EMAR. STANLEY AGGARWAL NOTIFIED OF PT REQUEST TO SPEAK WITH HER. BED IS IN THE LOWEST POSITION. CALL LIGHT AND BEDSIDE TABLE ARE WITHIN REACH. SIDE RAILS X 2. ISRAEL ALARM IS ON AND WORKING. PT DENIES FURTHER NEEDS AT THIS TIME. WILL CONT TO MONITOR.
[2019-02-07 09:38] VITALS: BP 95/73
[2019-02-07 11:40] LABS: PATH REVIEW PERIPHERAL SMEAR REVIEWED
--- NOTE | 2019-02-07 13:45 | NUR ---
PT FRIEND/AUTO HIKER AT BEDSIDE JOHNNY IBARRA. JOHNNY IBARRA SIGNED FORM FOR REFUSAL FOR BED ALARM. PT IS REQUESTING TO GO OUTSIDE AND WISHES TO SMOKE A CIGARETTE. PT EDUCATED ON PAIN MEDICATION AND OTHER MEDICATIONS PT IS CURRENTLY PRESCRIBED AND DANGERS OF LEAVING FLOOR. PT VERBALIZES UNDERSTANDING, JOHNNY IBARRA VERBALIZES UNDERSTANDING AND STATES THAT SHE ASSUMES ALL RESPONSIBILTY AT THIS TIME. PT STRONGLY URGED TO STAY IN ROOM. PT IS FORCEFULLY REFUSING TO STAY IN ROOM AND IS ADAMENT ON LEAVING AND GOING OUTSIDE. JOHNNY IBARRA STATES, "I THINK THAT SHE WILL BE BETTER IF SHE CAN JUST GO OUTSIDE AND SMOKE". PT AND JOHNNY IBARRA EDUCATED ON HOSPITAL POLICY AND REQUESTS FOR PT TO STAY IN ROOM. PT IS REFUSING AT THIS TIME.
--- NOTE | 2019-02-07 13:54 | NUR ---
PT LEAVING ROOM VIA WHEELCHAIR AGAINST ADVICE/EDUCATION ON IMPORTANCE OF STAYING IN ROOM. WHEELCHAIR IS BEING PUSHED BY JOHNNY IBARRA.
--- NOTE | 2019-02-07 14:49 | NUR ---
PT RETURNS TO ROOM FROM OUTSIDE VISIT. PT IS REQUESTING A SHOWER. GERALD MORELAND TO ASSIST.
[2019-02-07 16:12] LABS: CEA 0.7 ng/mL (0.0-4.7)
[2019-02-07 17:56] VITALS: BP 98/50
--- NOTE | 2019-02-07 19:00 | NUR ---
REPORT RECEIVED AND CARE OF PT ASSUMED. PT SITTING ON SIDE OF BED ASKING TO GO SMOKE AND FOR PAIN MED. EXPLAINED THAT SHE CANNOT GO OUTSIDE TO SMOKE IF I GIVE HER NARCOTICS. PT VERY ANXIOUS AND "WANTS TO GO HOME, BUT NO ONE WILL COME AND GET HER". I TOLD HER THIS WAS NOT A GROUP HOME, THAT SHE WAS HERE FOR MEDICAL CARE. TRIED TO CALM PT...GOT HER SOME COFFEE. WILL CONTINUE TO MONITOR.
[2019-02-07 20:16] LABS: APPEARANCE CLEAR (CLEAR); COLOR YELLOW (YELLOW)
[2019-02-07 20:17] LABS: BILIRUBIN NEGATIVE (NEGATIVE); GLUCOSE NEGATIVE (NEGATIVE); KETONE NEGATIVE (NEGATIVE); NITRITE NEGATIVE (NEGATIVE); PROTEIN NEGATIVE (NEGATIVE); SPECIFIC GRAVITY 1.005 (1.005-1.020)
--- NOTE | 2019-02-07 20:19 | NUR ---
GAVE OXY 30 MG PO PER PRN ORDER FOR C/O BACK PAIN AT LEVEL 8/0. ENCOURAGING PT TO LAY IN BED INSTEAD OF PACING IN HER ROOM AND SITTING ON SIDE OF BED. WILL CONTINUE TO MONTIOR FOR NEEDS.
[2019-02-07 20:25] LABS: UDS - AMPHET NEGATIVE QUAL (NEGATIVE); UDS - BARB NEGATIVE QUAL (NEGATIVE); UDS - BENZO POSITIVE QUAL (NEGATIVE); UDS - COCAINE NEGATIVE QUAL (NEGATIVE); UDS - OPIATE POSITIVE QUAL (NEGATIVE); UDS - PCP NEGATIVE QUAL (NEGATIVE); UDS - THC NEGATIVE QUAL (NEGATIVE)
[2019-02-07 21:08] VITALS: BP 89/50
--- NOTE | 2019-02-07 21:37 | NUR ---
HS MEDICATIONS GIVEN. GAVE SANDWICH FOR HS SNACK.
--- NOTE | 2019-02-07 23:42 | NUR ---
PT RESTING ON LEFT SIDE WITH EYES CLOSED AND EASY RESPIRATIONS. WILL CONTINUE TO MONITOR FOR NEEDS.
[2019-02-08 01:39] VITALS: BP 100/55
[2019-02-08 05:29] LABS: BASOPHILS 0.4 % (0-2); EOSINOPHILS 3.2 % (0-7); HEMATOCRIT 25.9 % (36.0-48.0); HEMOGLOBIN 8.1 g/dL (12-16); IMMATURE GRANULOCYTES 0.1 % (0-5); MCH 22.8 pg (26.0-34.0); MCHC 31.3 g/dL (31.0-37.0); MCV 72.8 fL (80.0-100.0); MEAN PLATELET VOLUME 8.8 fL (7.4-10.4); MONOCYTES 6.9 % (2-11); NEUTROPHILS 48.4 % (40-80); PLATELET COUNT 319 10x3/uL (130-400); RBC 3.56 10x6/uL (4.00-5.40); RDW 17.4 % (11.5-14.5); WBC 6.9 10x3/uL (4.8-10.8)
[2019-02-08 05:48] LABS: CALC OSMOLALITY 273 mosm/kg (275-300); CALCIUM 8.2 mg/dL (8.5-10.1); CARBON DIOXIDE 28.1 mmol/L (21.0-32.0); CHLORIDE - SERUM 105 mmol/L (98-107); CREATININE - SERUM 0.4 mg/dL (0.6-1.3); GLUCOSE 95 mg/dL (74-106); MAGNESIUM - SERUM 2.2 mg/dL (1.8-2.4); PHOSPHOROUS 3.2 mg/dL (2.5-4.9); SODIUM 138 mmol/L (136-145); UREA NITROGEN 8 mg/dL (7-18); eGFR NON AFRICAN AMERICAN > 90 mL/min (90-120)
[2019-02-08 08:45] VITALS: BP 91/49
--- NOTE | 2019-02-08 09:40 | EC ---
PATIENT:ELEN MEEHAN DATE OF SERVICE: 02/05/19 SEX: F MEDICAL RECORD: [id number] DATE OF : 60 LOCATION:D.MS English222 AGE OF PATIENT: 58 ADMISSION DATE: 02/05/19 REFERRING PHYSICIAN: INTERPRETING PHYSICIAN: MARIO RING MD ECHOCARDIOGRAM REPORT ECHO CHARGES 4 ECHO COMPLETE Date: 02/06/19 CLINICAL DIAGNOSIS: HTN, HX OF HEART DISEASE ECHOCARDIOGRAPHIC MEASUREMENTS (adult normal given) AC root (d.<3.7cm) 2.0 cm LV Septum d (<1.2 cm> 1.1 cm Valve Excursion 1.1 cm LV Septum (systole) 1.4 cm Left Atria (s.<4.0cm> 2.8 cm LVPW d(<1.2cm) 1.3 cm RV (d.<2.3cm) 3.6 cm LVPW (sytole) 1.4 cm LV diastole(<5.6CM) 3.2 cm MV E-F(>70mm/sec) cm LV systole 2.0 cm LVOT Diameter 1.8 cm MV exc.(>10mm) 1.6 cm Est.ejection fraction (50-75%) % DOPPLER: LVIT cm/sec A 80.0 cm/sec E 65.0 cm/sec LA cm/sec RVSP 34 mmHg LVOT 101 cm/sec AOP1/2T m/s Asc. Ao 117 cm/sec RVOT 61 cm/sec RA cm/sec PA 115 cm/sec AV Gradient Peak 5.49 mmHg AV Mean 3.03 mmHg AV Area 2.5 cm MV Gradient Peak 2.70 mmHg MV Mean 1.34 mmHg MV Area cm COMMENTS: Supervisor White Sugar: Cosme REYNA Supervisor Fitting: 1 Dr. Ring TAPE# PACS Pericardial Effusion N DATE OF SERVICE: 02/06/2019 FINDINGS: 1. Left ventricular chamber size is within normal limits. Left ventricular systolic function is normal. Overall ejection fraction estimated at 65%. 2. Left atrium, right atrium, and right ventricle chamber sizes are within normal limits. 3. Valvular structures have normal structure and motion. 4. Doppler interrogation reveals no significant valvular insufficiency or stenosis. ECHOCARDIOGRAM REPORT [id number] ELEN MEEHAN 5. No evidence of pericardial effusion or left ventricular thrombus. TRANSINT:[id number] Voice Confirmation ID: [id number] DOCUMENT ID: [id number] MARIO RING MD at 0940 CC: [id number] DICTATION DATE: 02/06/19 1554 RN COMPLEX CARE: 02/07/19 0121 ADM IN [facility] [address] [id number]
--- NOTE | 2019-02-08 11:04 | NUR ---
PT RESTING IN BED. NO SIGNS OF DISTRESS. NO IV. PT REFUSED TO HAVE FALL PRECAUTIONS IN PLACE. PAPER SIGNED ON REFUSAL. COMPLAINS OF PAIN. MEDICATION IS NOT DUE AT THIS TIME. WILL GIVE WHEN ABLE TO. DENIES ANY FUTHER NEED AT THIS TIME. CALL LIGHT IN REACH. BED LOW POSITION. NO FAMILY AT BEDSIDE.
[2019-02-08] MEDS ORDERED: Nicoderm [PBKC] TRANSDERM (13:47)
--- NOTE | 2019-02-08 14:27 | MORECARE ---
CASE MANAGEMENT DISCHARGE SUMMARY PATIENT: ELEN MEEHAN UNIT: [id number] ADM DATE: 02/05/19 AGE: 58 : 60 SEX: F ROOM/BED: D.2224 AUTHOR: ANGIE NUGENT PHYSICIAN: REFERRING PHYSICIAN: QUETA YOU DO DATE OF SERVICE: 02/08/19 Discharge Plan Patient Name: ELEN MEEHAN Facility: [facility]:[place] : 1960 Planned Disposition: Home Anticipated Discharge Date: 02/06/19 Discharge Date: Expected LOS: 1 Initial Reviewer: [email or web address] Initial Review Date: 02/06/2019 Generated: 02/08/19 3:27 pm Comments DCP- Discharge Planning Updated by [email or web address]: Kae Saucedo on 02/08/19 1:[address] Discharge orders received. I met with patient and she states she is going to call someone to take her home. Declines home health or any DME needs. Home today with family. CM will continue to follow and assist with discharge planning/needs. DCP- Discharge Planning Updated by [email or web address]: Kae Saucedo on 02/06/19 3:[address] Patient Name: ELEN MEEHAN Admission Status: Urgent Accout number: [id number] Admission Date: 02-05-2019 : 1960 Admission Diagnosis: Attending: QUETA YOU Current LOS: 1 Anticipated DC Date: 02-06-2019 Planned Disposition: Home Primary Insurance: MEDICAID [place] Discharge Planning Comments: CM met with patient to discuss discharge planning/needs, her daughter (Ania) is present in the room and verbal permission received to discuss discharge planning with daughter present. Patient falls asleep a couple of times during questioning. She states she lives alone, but her family checks on her often. States her friend (Cesilia) lives 3 minutes away and also helps her. She states she has been independent with all ADL's and AIDL's. Her daughter states lately they have helped her with her med management. I discussed the availability of home health and additional DME needs and she declines need at this time. CM will continue to follow and assist with discharge planning/needs. Database Specialist: Kae Saucedo DCPIA - Discharge Planning Initial Assessment Updated by [email or web address]: Kae Saucedo on 02/06/19 4:44 pm * Is the patient Alert and Oriented? Yes * How many steps to enter\exit or inside your home? 10/26 * PCP Dr. Paris * Pharmacy [facility] * Preadmission Environment Home Alone * ADLs Independent * Equipment Bedside Commode Shower Chair Walker * List name and contact numbers for known caregivers / representatives who currently or will assist patient after discharge: Ania - DT - [phone] Luciaher Garcia - [facility] - Cesilia Galvezley [facility] - [phone] * Verbal permission to speak to the caregivers and representatives has been obtained from the patient. Yes * Community resources currently utilized None * Additional services required to return to the preadmission environment? No * Can the patient safely return to the preadmission environment? Yes * Has this patient been hospitalized within the prior 30 days at any hospital? No Last DP export: 02/06/19 3:48 p Patient Name: ELEN MEEHAN Page [id number] at 1427 All edits/amendments must be made on the electronic document DICTATION DATE: 02/08/191426 CHEMISTRY PROFESSOR: DESHAWN 02/08/191426 RPT#: [id number] DC DATE: STATUS: ADM IN [facility] [address] [place] [address] END OF REPORT
[2019-02-08 14:37] VITALS: BP 87/57
--- NOTE | 2019-02-08 15:56 | NUR ---
DISCHARGE INSTRUCTIONS GIVEN. SEEMS TO UNDERSTAND INSTRUCTIONS. HAD NO IV. LEFT WITH HOSPITAL STAFF TO GO HOME WITH FRIEND IN PERSONAL RIDE. NO SIGNS OF DISTRESS UPON LEAVING.
[2019-02-08 18:08] LABS: FOLATE (FOLIC ACID) - SERUM 3.8 ng/mL (>3.0)
[2019-02-09 09:12] LABS: HEPATITIS C ANTIBODY 0.4 (0.0-0.9)
--- NOTE | 2019-02-09 15:57 | MORECARE ---
CASE MANAGEMENT DISCHARGE SUMMARY PATIENT: ELEN MEEHAN UNIT: [id number] ADM DATE: 02/05/19 AGE: 58 : 60 SEX: F ROOM/BED: D.2224 AUTHOR: ANGIE NUGENT PHYSICIAN: REFERRING PHYSICIAN: QUETA YOU DO DATE OF SERVICE: 02/09/19 Discharge Plan Patient Name: ELEN MEEHAN Facility: [facility]:[place] : 1960 Planned Disposition: Home Anticipated Discharge Date: 02/06/19 Discharge Date: 02/08/2019 Expected LOS: 1 Initial Reviewer: [email or web address] Initial Review Date: 02/06/2019 Generated: 02/09/19 4:57 pm Comments DCP- Discharge Planning Updated by [email or web address]: Kae Saucedo on 02/08/19 1:[address] Discharge orders received. I met with patient and she states she is going to call someone to take her home. Declines home health or any DME needs. Home today with family. CM will continue to follow and assist with discharge planning/needs. DCP- Discharge Planning Updated by [email or web address]: Kae Saucedo on 02/06/19 3:[address] Patient Name: ELEN MEEHAN Admission Status: Urgent Accout number: [id number] Admission Date: 02-05-2019 : 1960 Admission Diagnosis: Attending: QUETA YOU Current LOS: 1 Anticipated DC Date: 02-06-2019 Planned Disposition: Home Primary Insurance: MEDICAID [place] Discharge Planning Comments: CM met with patient to discuss discharge planning/needs, her daughter (Ania) is present in the room and verbal permission received to discuss discharge planning with daughter present. Patient falls asleep a couple of times during questioning. She states she lives alone, but her family checks on her often. States her friend (Cesilia) lives 3 minutes away and also helps her. She states she has been independent with all ADL's and AIDL's. Her daughter states lately they have helped her with her med management. I discussed the availability of home health and additional DME needs and she declines need at this time. CM will continue to follow and assist with discharge planning/needs. Associate Attorney: Kae Saucedo DCPIA - Discharge Planning Initial Assessment Updated by [email or web address]: Kae Saucedo on 02/06/19 4:44 pm * Is the patient Alert and Oriented? Yes * How many steps to enter\exit or inside your home? 10/26 * PCP Dr. Paris * Pharmacy [facility] * Preadmission Environment Home Alone * ADLs Independent * Equipment Bedside Commode Shower Chair Walker * List name and contact numbers for known caregivers / representatives who currently or will assist patient after discharge: Ania [facility] - [phone] Lucia Garcia - [facility] - Cesilia Prater [facility] - [phone] * Verbal permission to speak to the caregivers and representatives has been obtained from the patient. Yes * Community resources currently utilized None * Additional services required to return to the preadmission environment? No * Can the patient safely return to the preadmission environment? Yes * Has this patient been hospitalized within the prior 30 days at any hospital? No Last DP export: 02/08/19 1:27 p Patient Name: ELEN MEEHAN Page [id number] at 1557 All edits/amendments must be made on the electronic document DICTATION DATE: 02/09/191555 MANNEQUIN DECORATOR: DESHAWN 02/09/191555 [facility]#: [id number] [place] DATE:02/08/19 STATUS: DIS IN [facility] [address] [place] [address] END OF REPORT
== END 2019-02-08 15:57 | disposition home or self-care (01) | DRG 551 ==
LOC: D.MS 17:04
PROVIDERS: Family Medicine; ADMIT Family Medicine; ATTEND Family Medicine
DX: S22.021A Stable burst fracture of second thoracic vertebra, initial encounter for closed fracture (principal); E43 Unspecified severe protein-calorie malnutrition; R64 Cachexia; Z68.1 Body mass index [BMI] 19.9 or less, adult; F17.213 Nicotine dependence, cigarettes, with withdrawal; M06.9 Rheumatoid arthritis, unspecified; D64.9 Anemia, unspecified; J45.909 Unspecified asthma, uncomplicated